=== PATIENT | male | born 1965 | race Caucasian/White ===

== ENCOUNTER 2022-04-03 14:21 | Inpatient (IN) ==
[~2022-04-03 14:21] MED LIST: Etomidate 40 mg/20 ml (2 MG/ML) 20 ml VIAL (40 mg) ONE; Midazolam 10 mg/10 ml VIAL 1 mg/ml 10 ml VIAL (10 mg) ONE; Succinylcholine 200 mg VIAL 20 mg/ml 10 ml VIAL (200 mg) ONE; fentaNYL 250 mcg/5 ml 50 MCG/ML 5 ml VIAL (250 MCG) ONE
[2022-04-03 14:38] LABS: Hematocrit 45 % (42-52); Hemoglobin 15.2 g/dL (14.0-18.0); Mean Corpuscular HGB Conc 34 g/dL (31-36); Mean Corpuscular Hemoglobin 31 pg (27-31); Mean Corpuscular Volume 92 fL (80-94); Platelet Count 212 10^3/uL (150-450); Red Blood Count 4.87 10^6 /uL (4.18-5.48); Red Cell Distribution Width 13 % (10-15); White Blood Count 8.6 10^3/uL (3.5-10.8)
[2022-04-03] MEDS ORDERED: Heparin - STEMI 5,000 UNITS/ML 1 ml VIAL IV ONE (14:41)
[2022-04-03] MEDS ORDERED: Midazolam 5 mg/5 ml VIAL 1 mg/ml 5 ml VIAL (5 mg) ONE (14:42)
[2022-04-03] MEDS ORDERED: Heparin 1,000 UNIT/ML 10 ml (10,000 UNITS) CATHLAB/DIALYSIS ONE (14:42)
[2022-04-03] MEDS ORDERED: Lidocaine 1% MPF 5 ML VIAL ONE (14:42)
[2022-04-03] MEDS ORDERED: fentaNYL 100 mcg/2 ml 50 MCG/ML VIAL ONE ×2 (14:42→14:52)
[2022-04-03] MEDS ORDERED: Iohexol 350 (CONTRAST) 100 ML PAK IV ONE (14:42)
[2022-04-03] MEDS ORDERED: Heparin 2 UNITS/ML 1000 mls 3,000 ML IV ONE (14:42)
[2022-04-03] MEDS ORDERED: nitroGLYCERIN DRIP 25,000 MCG/250 ML BTL ONE (14:42)
[2022-04-03] MEDS ORDERED: niCARdipine 0.1MG/ML IVPREMIX 20 MG/200 ML BAG IV ONE (14:43)
[2022-04-03 14:48] LABS: INR 0.97 (0.89-1.11)
[2022-04-03 15:02] LABS: High Sens Troponin Baseline 91 pg/mL (<20)
[2022-04-03 15:03] LABS: ALT 150 U/L (7-52); AST 103 U/L (13-39); Albumin 3.9 g/dL (3.2-5.2); Albumin/Globulin Ratio 1.7 (1-3); Alkaline Phosphatase 67 U/L (35-149); Anion Gap 17 mmol/L (2-11); Blood Urea Nitrogen 13 mg/dL (6-24); CO2 Carbon Dioxide 18 mmol/L (22-32); Calcium 9.2 mg/dL (8.6-10.3); Chloride 98 mmol/L (101-111); Globulin 2.3 g/dL (2-4); Glucose 409 mg/dL (70-100); LDL Cholesterol Direct 114 mg/dL; Magnesium 2.7 mg/dL (1.9-2.7); Potassium 2.8 mmol/L (3.5-5.0); Sodium 133 mmol/L (135-145); Total Protein 6.2 g/dL (6.4-8.9); eGFR CKD-EPI 63.5 (>60)
[2022-04-03] MEDS ORDERED: Dextrose 50% Syringe 50 ml 25 GM/50 ML SYRINGE IV PUSH PRN (15:10)
[2022-04-03] MEDS ORDERED: Norepinephrine 16MCG/ML BAG NS 4,000 MCG/250 ML BAG IV ONE (15:14)
[2022-04-03] MEDS ORDERED: Amiodarone IV 150 mg/3 ml VIAL ONE (15:18)
[2022-04-03 15:22] LABS: Creatine Kinase 194 U/L (10-223); Lipase 46 U/L (11.0-82.0); Phosphorus 6.4 mg/dL (2.5-5.0)
[2022-04-03 15:23] LABS: Activated Partial Thrombo Time 27.1 seconds (26.0-38.0); Fibrinogen 377.7 mg/dL (110.8-404.3)
[2022-04-03] MEDS ORDERED: KCL 10 MEQ/50 ML IVPREMIX 10 MEQ/50 ML BAG ONE ×2 (15:27→16:24)
[2022-04-03 15:30] LABS: HCG Pregnancy < 0.60 mIU/mL
[2022-04-03] MEDS ORDERED: Ondansetron 4 mg VIAL 2 MG/ML 2 ml VIAL IV PRN (16:14)
[2022-04-03] MEDS: Propofol 10 mg/ml 100 ML BTL 100 ML IV SCH ×2 (17:00→22:27)
[2022-04-03] MEDS: Chlorhexidine MOUTHWASH 0.12% 15 ML UDC TOPICAL SCH ×3 (17:38→23:16)
[2022-04-03] MEDS: KCL 20 MEQ/100 ML IVPREMIX 20 MEQ/100 ML BAG IV SCH ×3 (18:24→21:44)
[2022-04-03 18:34] LABS: Hematocrit 46 % (42-52); Hemoglobin 15.1 g/dL (14.0-18.0); Mean Corpuscular HGB Conc 33 g/dL (31-36); Mean Corpuscular Hemoglobin 30 pg (27-31); Mean Corpuscular Volume 92 fL (80-94); Mean Platelet Volume 7.8 fL (7.4-10.4); Platelet Count 192 10^3/uL (150-450); Red Blood Count 4.97 10^6 /uL (4.18-5.48); Red Cell Distribution Width 13 % (10-15); White Blood Count 12.2 10^3/uL (3.5-10.8)
[2022-04-03 18:50] LABS: Urine Creatinine Concentration 53.95 mg/dL
[2022-04-03 19:29] LABS: ABS Neutrophils 10.1 10^3/ul (1.5-7.7); Eosinophil % 0.2 %; Lymphocyte % 8.3 %
[2022-04-03 19:33] LABS: Urine Appearance Clear; Urine Bilirubin Negative (Negative); Urine Blood 3+ (Negative); Urine Color Yellow; Urine Glucose 3+(>=500 mg/dL) (Negative); Urine Ketones Trace (Negative); Urine Nitrite Negative (Negative); Urine Protein 1+(30 mg/dL) (Negative); Urine Urobilinogen Negative (Negative)
[2022-04-03 19:40] LABS: Urine Specific Gravity > 1.030 (1.002-1.030)
[2022-04-03 19:56] LABS: Anion Gap 5 mmol/L (2-11); Blood Urea Nitrogen 15 mg/dL (6-24); CO2 Carbon Dioxide 24 mmol/L (22-32); Calcium 8.8 mg/dL (8.6-10.3); Chloride 100 mmol/L (101-111); Glucose 326 mg/dL (70-100); Sodium 129 mmol/L (135-145); eGFR CKD-EPI 69.8 (>60)
[2022-04-03 20:12] LABS: Urine Red Blood Cell 3+(>10/hpf) (Absent); Urine White Blood Cell Trace(0-5/hpf) (Absent)
[2022-04-03 20:13] LABS: Urine Bacteria Absent (Absent); Urine Sperm Present (Absent)
[2022-04-03 20:19] LABS: PCO2 Arterial 39 mmHg (35-45); PO2 Arterial 107 mmHg (80-100)
[2022-04-03] MEDS: fentaNYL 100 mcg/2 ml 50 MCG/ML VIAL IV SLOW PU PRN (21:42)
[2022-04-03 21:50] LABS: Potassium Redraw 6.5 mmol/L (3.5-5.0)
[2022-04-03 22:31] LABS: Potassium, Whole Blood 4.6 mmol/L (3.4-4.5)
[2022-04-03] MEDS: Acetaminophen IV 1 GM/100ML 1,000 MG/100 ML BAG IV PRN (23:16)
[2022-04-03] MEDS ORDERED: LORazepam 2 mg VIAL 1 ml IV PUSH ONE (23:31)
[2022-04-03] MEDS ORDERED: Lorazepam PYXIS KEY PRN (23:31)
[2022-04-04] MEDS: Norepinephrine 16MCG/ML BAGD5W 4,000 MCG/250 ML BAG IV SCH (01:00)
[2022-04-04] MEDS: Propofol 10 mg/ml 100 ML BTL 100 ML IV SCH ×5 (03:18→21:33)
[2022-04-04] MEDS: Chlorhexidine MOUTHWASH 0.12% 15 ML UDC TOPICAL SCH ×5 (03:20→20:15)
[2022-04-04] MEDS: fentaNYL 100 mcg/2 ml 50 MCG/ML VIAL IV SLOW PU PRN ×2 (03:44→20:28)
[2022-04-04] MEDS: Meperidine 50 mg/ml SYRINGE 1 ml IV PRN ×3 (04:12→17:41)
[2022-04-04 04:48] LABS: ABS Lymphocytes 0.7 10^3/ul (1.0-4.8); ABS Neutrophils 8.1 10^3/ul (1.5-7.7); Eosinophil % 0.2 %; Hematocrit 40 % (42-52); Hemoglobin 13.4 g/dL (14.0-18.0); Lymphocyte % 6.8 %; Mean Corpuscular HGB Conc 33 g/dL (31-36); Mean Corpuscular Hemoglobin 31 pg (27-31); Mean Corpuscular Volume 94 fL (80-94); Platelet Count 179 10^3/uL (150-450); Red Blood Count 4.32 10^6 /uL (4.18-5.48); Red Cell Distribution Width 14 % (10-15); White Blood Count 9.8 10^3/uL (3.5-10.8)
[2022-04-04 05:02] LABS: Activated Partial Thrombo Time 25.3 seconds (26.0-38.0); INR 0.98 (0.89-1.11)
[2022-04-04 06:03] LABS: Albumin 3.2 g/dL (3.2-5.2); Albumin/Globulin Ratio 1.8 (1-3); Direct Bilirubin 0.3 mg/dL (0.03-0.18); Globulin 1.8 g/dL (2-4); HDL Cholesterol 24.7 mg/dL; Indirect Bilirubin 0.5 mg/dL (0.3-1.0); Magnesium 1.7 mg/dL (1.9-2.7); Potassium 3.8 mmol/L (3.5-5.0); Total Bilirubin 0.8 mg/dL (0.2-1.0)
[2022-04-04] MEDS ORDERED: Magnesium Sulfate IV 1GM/100ML 1 GM/100 ML BAG IV ONE (06:18)
[2022-04-04] MEDS ORDERED: Magnesium Sulfate 2 gm BAG 2 GM/50 ML BAG IVPB ONE ×2 (07:39→20:18)
[2022-04-04] MEDS ORDERED: Perflutren Lipid Microsphere 3 ML VIAL ONE (08:29)
[2022-04-04] MEDS: Pantoprazole VIAL 40 MG VIAL IV SCH (10:41)
[2022-04-04] MEDS: Acetaminophen IV 1 GM/100ML 1,000 MG/100 ML BAG IV PRN (11:06)
[2022-04-04] MEDS: Metoprolol Tartrate 5 mg VIAL 5 ml VIAL (1 mg/ml) IV PRN (18:39)
[2022-04-04] MEDS ORDERED: KCL 20 MEQ/100 ML IVPREMIX 20 MEQ/100 ML BAG IV ONE (19:07)
[2022-04-04] MEDS: Heparin 5000 UNITS/ML 1 mL VIAL IV SCH (19:48)
[2022-04-04] MEDS: Heparin DRIP 25,000 UNITS BAG 25,000 UNITS/500 ML BAG IV SCH (19:50)
[2022-04-04 19:58] LABS: Magnesium 1.6 mg/dL (1.9-2.7); eGFR CKD-EPI 117.6 (>60)
[2022-04-04 20:01] LABS: Calcium 6.1 mg/dL (8.6-10.3)
[2022-04-04] MEDS ORDERED: Calcium Gluconate 1 GM/10 ML VIAL (in Pyxis) IV PUSH ONE (20:18)
[2022-04-04 20:19] LABS: ABS Basophils 0.1 10^3/ul (0-0.2); ABS Eosinophils 0.1 10^3/ul (0-0.6); ABS Monocytes 1.1 10^3/ul (0-0.8); ABS Neutrophils 9.3 10^3/ul (1.5-7.7); Eosinophil % 0.5 %; Hematocrit 41 % (42-52); Hemoglobin 13.6 g/dL (14.0-18.0); Lymphocyte % 8.9 %; Mean Corpuscular HGB Conc 33 g/dL (31-36); Mean Corpuscular Hemoglobin 31 pg (27-31); Mean Corpuscular Volume 93 fL (80-94); Mean Platelet Volume 8.1 fL (7.4-10.4); Platelet Count 178 10^3/uL (150-450); Red Blood Count 4.39 10^6 /uL (4.18-5.48); Red Cell Distribution Width 13 % (10-15); White Blood Count 11.6 10^3/uL (3.5-10.8)
[2022-04-05] MEDS: Chlorhexidine MOUTHWASH 0.12% 15 ML UDC TOPICAL SCH ×6 (01:01→20:09)
[2022-04-05] MEDS: Propofol 10 mg/ml 100 ML BTL 100 ML IV SCH ×5 (02:20→21:17)
[2022-04-05] MEDS: fentaNYL 100 mcg/2 ml 50 MCG/ML VIAL IV SLOW PU PRN ×3 (02:25→15:05)
[2022-04-05 04:45] LABS: ABS Lymphocytes 0.7 10^3/ul (1.0-4.8); ABS Monocytes 0.8 10^3/ul (0-0.8); ABS Neutrophils 9.3 10^3/ul (1.5-7.7); Hematocrit 41 % (42-52); Hemoglobin 13.7 g/dL (14.0-18.0); Mean Corpuscular HGB Conc 34 g/dL (31-36); Mean Corpuscular Hemoglobin 31 pg (27-31); Mean Corpuscular Volume 92 fL (80-94); Platelet Count 164 10^3/uL (150-450); Red Cell Distribution Width 13 % (10-15); White Blood Count 10.8 10^3/uL (3.5-10.8)
[2022-04-05 05:10] LABS: Albumin 3.5 g/dL (3.2-5.2); Albumin/Globulin Ratio 1.6 (1-3); Calcium 8.4 mg/dL (8.6-10.3); Globulin 2.2 g/dL (2-4); Magnesium 2.2 mg/dL (1.9-2.7); Potassium 4.1 mmol/L (3.5-5.0); Total Bilirubin 0.8 mg/dL (0.2-1.0); Total Protein 5.7 g/dL (6.4-8.9)
[2022-04-05] MEDS ORDERED: Midazolam 2 mg/2 ml VIAL 1 mg/ml 2 ml VIAL (2 mg) IV SLOW PU ONE (05:28)
[2022-04-05] MEDS: Acetaminophen IV 1 GM/100ML 1,000 MG/100 ML BAG IV PRN ×2 (05:33→23:52)
[2022-04-05] MEDS ORDERED: HYDROmorphone 1 MG/1 ML SYRINGE IV SLOW PU PRN ×2 (05:49→06:27)
[2022-04-05 06:06] LABS: PCO2 Arterial 30 mmHg (35-45); PO2 Arterial 70 mmHg (80-100)
[2022-04-05] MEDS: Heparin 5000 UNITS/ML 1 mL VIAL IV SCH (06:31)
[2022-04-05] MEDS ORDERED: Dexmedetomidine 1,000 MCG in NS 0.9% 250 ml 240 ML IV SCH (07:00)
[2022-04-05] MEDS: Pantoprazole VIAL 40 MG VIAL IV SCH (07:50)
[2022-04-05] MEDS: Metoprolol Tartrate 5 mg VIAL 5 ml VIAL (1 mg/ml) IV PRN ×2 (07:56→22:13)
[2022-04-05] MEDS ORDERED: Amiodarone 150 mg IVPREMIX 150 MG/100 ML BAG IV ONE (09:09)
[2022-04-05] MEDS ORDERED: Amiodarone 360 MG IVPREMIX 360 MG/200 ML BAG IV SCH (09:20)
[2022-04-05 10:31] LABS: TSH Ultra Thyroid Stim Horm 15.99 mcIU/mL (0.34-5.60)
[2022-04-05 10:33] LABS: Free T3 3.2 pg/mL (2.5-3.9); Free T4 0.68 ng/dL (0.61-1.12)
[2022-04-05] MEDS ORDERED: Lactated Ringers 500 ml BAG 500 ML IV ONE (13:03)
[2022-04-05] MEDS: Lactated Ringers 1000 ml BAG 500 ML IV ONE ×2 (13:10→14:42)
[2022-04-05] MEDS: Norepinephrine 16MCG/ML BAGD5W 4,000 MCG/250 ML BAG IV SCH ×2 (13:25→16:58)
[2022-04-05 14:52] LABS: Calcium 8.5 mg/dL (8.6-10.3); Magnesium 2.2 mg/dL (1.9-2.7); Potassium 4.3 mmol/L (3.5-5.0); eGFR CKD-EPI 63.5 (>60)
[2022-04-05] MEDS ORDERED: Lorazepam PYXIS KEY PRN (14:53)
[2022-04-05] MEDS: LORazepam 2 mg VIAL 1 ml IV PUSH PRN ×2 (15:05→17:10)
[2022-04-05] MEDS: Amiodarone 360 MG IVPREMIX 360 MG/200 ML BAG IV SCH ×2 (15:27→20:00)
[2022-04-05] MEDS: Heparin DRIP 25,000 UNITS BAG 25,000 UNITS/500 ML BAG IV SCH (23:37)
[2022-04-06] MEDS: Chlorhexidine MOUTHWASH 0.12% 15 ML UDC TOPICAL SCH ×5 (00:27→15:04)
[2022-04-06] MEDS ORDERED: PHENYLEPHRINE DRIP IVPREMIX 50 MG/250 ML BAG IV SCH (01:00)
[2022-04-06 04:19] LABS: ABS Basophils 0.1 10^3/ul (0-0.2); ABS Lymphocytes 0.9 10^3/ul (1.0-4.8); ABS Neutrophils 8.5 10^3/ul (1.5-7.7); Eosinophil % 0.3 %; Hematocrit 35 % (42-52); Hemoglobin 11.9 g/dL (14.0-18.0); Lymphocyte % 8.8 %; Mean Corpuscular HGB Conc 34 g/dL (31-36); Mean Corpuscular Hemoglobin 31 pg (27-31); Mean Corpuscular Volume 92 fL (80-94); Mean Platelet Volume 8.3 fL (7.4-10.4); Platelet Count 179 10^3/uL (150-450); Red Blood Count 3.84 10^6 /uL (4.18-5.48); Red Cell Distribution Width 13 % (10-15); White Blood Count 10.6 10^3/uL (3.5-10.8)
[2022-04-06 04:59] LABS: Magnesium 2.1 mg/dL (1.9-2.7); Phosphorus 3.5 mg/dL (2.5-5.0); Potassium 3.9 mmol/L (3.5-5.0); eGFR CKD-EPI 67.2 (>60)
[2022-04-06] MEDS: Amiodarone 360 MG IVPREMIX 360 MG/200 ML BAG IV SCH ×2 (05:49→08:40)
[2022-04-06] MEDS ORDERED: Albuterol/Ipratropium NEB.SOL (2.5/0.5 MG) 3 ML NEB.SOLN ONE (05:57)
[2022-04-06] MEDS: Propofol 10 mg/ml 100 ML BTL 100 ML IV SCH (06:34)
[2022-04-06] MEDS ORDERED: NS 0.9% 1000 ml BAG 1,000 ML IV SCH (07:00)
[2022-04-06] MEDS: Pantoprazole VIAL 40 MG VIAL IV SCH (07:42)
[2022-04-06] MEDS: Metoprolol Tartrate 5 mg VIAL 5 ml VIAL (1 mg/ml) IV PRN ×2 (08:35→15:42)
[2022-04-06] MEDS: Acetaminophen IV 1 GM/100ML 1,000 MG/100 ML BAG IV PRN ×2 (09:24→22:15)
[2022-04-06] MEDS ORDERED: Amiodarone 150 mg IVPREMIX 150 MG/100 ML BAG IV ONE ×3 (10:17→13:26)
[2022-04-06] MEDS ORDERED: fentaNYL 100 mcg/2 ml 50 MCG/ML VIAL ONE (11:39)
[2022-04-06] MEDS ORDERED: Naloxone 0.4 mg VIAL 0.4 mg/ml 1 ml VIAL ONE (11:40)
[2022-04-06] MEDS ORDERED: Flumazenil 0.5 mg/5 ml 0.1 MG/ML 5 ml VIAL ONE (11:40)
[2022-04-06] MEDS ORDERED: LORazepam 2 mg VIAL 1 ml ONE (11:46)
[2022-04-06] MEDS ORDERED: Amiodarone 400 mg TAB PO SCH ×2 (12:00→12:30)
[2022-04-06] MEDS ORDERED: Midazolam 5 mg/5 ml VIAL 1 mg/ml 5 ml VIAL (5 mg) ONE ×2 (12:58→13:03)
[2022-04-06] MEDS ORDERED: fentaNYL 100 mcg/2 ml 50 MCG/ML VIAL IV ONE ×3 (12:58→13:10)
[2022-04-06] MEDS: fentaNYL 100 mcg/2 ml 50 MCG/ML VIAL IV SLOW PU PRN (12:58)
[2022-04-06] MEDS ORDERED: Midazolam 5 mg/5 ml VIAL 1 mg/ml 5 ml VIAL (5 mg) IV SLOW PU ONE ×5 (13:00→13:17)
[2022-04-06] MEDS ORDERED: Propofol 10 MG/ML 20 ML BTL ONE (13:05)
[2022-04-06] MEDS ORDERED: Potassium Chlor 20 meq TAB.ER PO ONE ×3 (13:28→21:00)
[2022-04-06] MEDS ORDERED: Metoprolol Tartrate 5 mg VIAL 5 ml VIAL (1 mg/ml) IV ONE (15:51)
[2022-04-06] MEDS ORDERED: Digoxin IV 0.5 MG/2 ML AMP (0.25 MG/ML) IV SLOW PU ONE ×2 (16:03→20:14)
[2022-04-06] MEDS: Heparin 5000 UNITS/ML 1 mL VIAL IV SCH (16:38)
[2022-04-06 18:30] LABS: Calcium 7.5 mg/dL (8.6-10.3); Magnesium 1.7 mg/dL (1.9-2.7); Potassium 3.3 mmol/L (3.5-5.0); eGFR CKD-EPI 102.8 (>60)
[2022-04-06] MEDS ORDERED: Magnesium Sulfate IV 3 GM in NS 0.9% 100 ml BAG 100 ML IVPB ONE (18:32)
[2022-04-06] MEDS: KCL 20 MEQ/100 ML IVPREMIX 20 MEQ/100 ML BAG IV SCH ×2 (19:27→21:42)
[2022-04-06] MEDS ORDERED: Levalbuterol 1.25MG/0.5ML NEB.SOL INH PRN (23:55)
[2022-04-07 00:11] LABS: Calcium 7.8 mg/dL (8.6-10.3); Magnesium 2.6 mg/dL (1.9-2.7); Potassium 4.4 mmol/L (3.5-5.0); eGFR CKD-EPI 100.6 (>60)
[2022-04-07] MEDS ORDERED: Digoxin IV 0.5 MG/2 ML AMP (0.25 MG/ML) IV SLOW PU ONE ×2 (02:00→02:51)
[2022-04-07] MEDS: LORazepam 2 mg VIAL 1 ml IV PUSH PRN (05:06)
[2022-04-07 05:21] LABS: ABS Lymphocytes 0.5 10^3/ul (1.0-4.8); ABS Monocytes 0.6 10^3/ul (0-0.8); ABS Neutrophils 5.6 10^3/ul (1.5-7.7); Eosinophil % 0.1 %; Hematocrit 33 % (42-52); Lymphocyte % 7.9 %; Mean Corpuscular HGB Conc 34 g/dL (31-36); Mean Corpuscular Hemoglobin 31 pg (27-31); Mean Corpuscular Volume 92 fL (80-94); Mean Platelet Volume 7.8 fL (7.4-10.4); Nucleated Red Blood Cells % 0.2; Platelet Count 129 10^3/uL (150-450); Red Blood Count 3.54 10^6 /uL (4.18-5.48); Red Cell Distribution Width 13 % (10-15); White Blood Count 6.7 10^3/uL (3.5-10.8)
[2022-04-07 05:52] LABS: Albumin/Globulin Ratio 1.4 (1-3); Calcium 7.9 mg/dL (8.6-10.3); Globulin 2.2 g/dL (2-4); Magnesium 2.4 mg/dL (1.9-2.7); Potassium 4.3 mmol/L (3.5-5.0); Total Bilirubin 0.7 mg/dL (0.2-1.0); Total Protein 5.2 g/dL (6.4-8.9); eGFR CKD-EPI 100.3 (>60)
[2022-04-07] MEDS: Pantoprazole VIAL 40 MG VIAL IV SCH (09:09)
[2022-04-07] MEDS: Metoprolol Tartrate 5 mg VIAL 5 ml VIAL (1 mg/ml) IV PRN (15:15)
[2022-04-07] MEDS ORDERED: Metoprolol Tartrate 5 mg VIAL 5 ml VIAL (1 mg/ml) IV ONE (15:18)
[2022-04-08 03:57] LABS: ABS Lymphocytes 0.5 10^3/ul (1.0-4.8); ABS Monocytes 0.7 10^3/ul (0-0.8); ABS Neutrophils 5.2 10^3/ul (1.5-7.7); Eosinophil % 0.4 %; Hematocrit 32 % (42-52); Hemoglobin 11.1 g/dL (14.0-18.0); Lymphocyte % 8.1 %; Mean Corpuscular HGB Conc 34 g/dL (31-36); Mean Corpuscular Hemoglobin 31 pg (27-31); Mean Corpuscular Volume 90 fL (80-94); Mean Platelet Volume 7.8 fL (7.4-10.4); Platelet Count 153 10^3/uL (150-450); Red Blood Count 3.56 10^6 /uL (4.18-5.48); Red Cell Distribution Width 13 % (10-15); White Blood Count 6.5 10^3/uL (3.5-10.8)
[2022-04-08] MEDS: Benzocaine/Menthol LOZ MT PRN (04:03)
[2022-04-08 04:31] LABS: Potassium 3.8 mmol/L (3.5-5.0); eGFR CKD-EPI 103.6 (>60)
[2022-04-08] MEDS ORDERED: Potassium Chlor 20 meq TAB.ER PO ONE (07:36)
[2022-04-08 09:32] LABS: Digoxin 0.9 ng/ml (0.8-2.0)
[2022-04-08] MEDS: Metoprolol Tartrate 5 mg VIAL 5 ml VIAL (1 mg/ml) IV PRN (21:31)
[2022-04-08 22:53] LABS: Calcium 7.5 mg/dL (8.6-10.3); Magnesium 1.7 mg/dL (1.9-2.7); Potassium 3.4 mmol/L (3.5-5.0); eGFR CKD-EPI 105.7 (>60)
[2022-04-08] MEDS ORDERED: Magnesium Sulfate 2 gm BAG 2 GM/50 ML BAG IVPB ONE (23:41)
[2022-04-09] MEDS: KCL 20 MEQ/100 ML IVPREMIX 20 MEQ/100 ML BAG IV SCH ×3 (00:12→05:12)
[2022-04-09 05:09] LABS: ABS Lymphocytes 0.7 10^3/ul (1.0-4.8); ABS Monocytes 0.9 10^3/ul (0-0.8); ABS Neutrophils 5.2 10^3/ul (1.5-7.7); Eosinophil % 0.5 %; Hematocrit 37 % (42-52); Hemoglobin 12.5 g/dL (14.0-18.0); Lymphocyte % 9.8 %; Mean Corpuscular HGB Conc 34 g/dL (31-36); Mean Corpuscular Hemoglobin 31 pg (27-31); Mean Corpuscular Volume 90 fL (80-94); Mean Platelet Volume 7.8 fL (7.4-10.4); Platelet Count 189 10^3/uL (150-450); Red Blood Count 4.06 10^6 /uL (4.18-5.48); Red Cell Distribution Width 13 % (10-15); White Blood Count 6.8 10^3/uL (3.5-10.8)
[2022-04-09 05:49] LABS: Albumin 3.2 g/dL (3.2-5.2); Albumin/Globulin Ratio 1.3 (1-3); Calcium 8.1 mg/dL (8.6-10.3); Globulin 2.5 g/dL (2-4); Magnesium 2.2 mg/dL (1.9-2.7); Potassium 4.3 mmol/L (3.5-5.0); Total Bilirubin 0.6 mg/dL (0.2-1.0); Total Protein 5.7 g/dL (6.4-8.9); eGFR CKD-EPI 106.1 (>60)
[2022-04-09] MEDS: Amiodarone 400 mg TAB PO SCH ×2 (12:12→20:59)
[2022-04-09] MEDS: Metoprolol Tartrate 5 mg VIAL 5 ml VIAL (1 mg/ml) IV PRN (12:53)
[2022-04-09] MEDS ORDERED: Amiodarone 150 mg IVPREMIX 150 MG/100 ML BAG IV ONE ×2 (13:20→13:24)
[2022-04-09] MEDS ORDERED: Metoprolol Tartrate 5 mg VIAL 5 ml VIAL (1 mg/ml) IV ONE (15:36)
[2022-04-09] MEDS ORDERED: Metoprolol Tartrate 5 mg VIAL 5 ml VIAL (1 mg/ml) IV PRN (21:10)
[2022-04-10] MEDS: Amiodarone 400 mg TAB PO SCH ×2 (08:35→21:30)
[2022-04-10 08:59] LABS: Hematocrit 36 % (42-52); Hemoglobin 12.6 g/dL (14.0-18.0); Mean Corpuscular HGB Conc 35 g/dL (31-36); Mean Corpuscular Hemoglobin 31 pg (27-31); Mean Corpuscular Volume 89 fL (80-94); Mean Platelet Volume 7.3 fL (7.4-10.4); Platelet Count 223 10^3/uL (150-450); Red Blood Count 4.09 10^6 /uL (4.18-5.48); Red Cell Distribution Width 13 % (10-15); White Blood Count 6.7 10^3/uL (3.5-10.8)
[2022-04-10 09:39] LABS: Albumin 3.2 g/dL (3.2-5.2); Albumin/Globulin Ratio 1.3 (1-3); Calcium 8.3 mg/dL (8.6-10.3); Globulin 2.5 g/dL (2-4); Magnesium 1.9 mg/dL (1.9-2.7); Potassium 3.9 mmol/L (3.5-5.0); Total Bilirubin 0.7 mg/dL (0.2-1.0); Total Protein 5.7 g/dL (6.4-8.9); eGFR CKD-EPI 107.5 (>60)
[2022-04-10 14:09] LABS: Hepatitis C Antibody Negative (Negative)
[2022-04-10 14:28] LABS: HIV 4th Generation Nonreactive (Nonreactive)
[2022-04-11] MEDS: Benzocaine/Menthol LOZ MT PRN (03:20)
[2022-04-11] MEDS: Nystatin SUSPENSION 100,000 UNITS/ML UDC PO SCH ×3 (05:04→14:04)
[2022-04-11 05:45] LABS: ABS Eosinophils 0.1 10^3/ul (0-0.6); ABS Monocytes 1.1 10^3/ul (0-0.8); ABS Neutrophils 5.9 10^3/ul (1.5-7.7); Eosinophil % 1.1 %; Hematocrit 39 % (42-52); Hemoglobin 13.6 g/dL (14.0-18.0); Lymphocyte % 11.8 %; Mean Corpuscular HGB Conc 35 g/dL (31-36); Mean Corpuscular Hemoglobin 31 pg (27-31); Mean Corpuscular Volume 90 fL (80-94); Mean Platelet Volume 7.3 fL (7.4-10.4); Nucleated Red Blood Cells % 0.1; Platelet Count 250 10^3/uL (150-450); Red Blood Count 4.34 10^6 /uL (4.18-5.48); Red Cell Distribution Width 13 % (10-15); White Blood Count 8.1 10^3/uL (3.5-10.8)
[2022-04-11 06:38] LABS: Calcium 8.5 mg/dL (8.6-10.3); Magnesium 1.9 mg/dL (1.9-2.7); eGFR CKD-EPI 105.7 (>60)
[2022-04-11] MEDS: Amiodarone 400 mg TAB PO SCH (09:09)
[2022-04-11 15:56] VITALS: BP 141/86
[2022-04-14 11:17] LABS: Hepatitis B Surface Antigen Nonreactive (Nonreactive)
== END 2022-04-11 15:50 | disposition home or self-care (01) | DRG 175 ==
LOC: EDBD → ED 14:21 → EDHOLD 14:38 → SUATTDRO 14:38 → EDHOLD 15:22 → ICU 16:44
PROVIDERS: ADMIT Internal Medicine; ATTEND Internal Medicine Critical Care Medicine